=== PATIENT | female | born 1960 | race Caucasian/White ===

== ENCOUNTER 2017-09-05 21:01 | Emergency (ER) | payer MEDICARE ==
[2014-11-28 18:19] VITALS: BMI 36.1
[~2017-09-05 21:01] MED LIST: ADVAIR 250/501 DISK INH; BENTYL10 MG PO; BUSPAR 15 MG TA15 MG PO; CLARITIN 10 MG10 MG PO; CYCLOBENZAPRINE10 MG PO; LISINOPRIL5 MG PO; PLAVIX75 MG PO; PRAVACHOL20 MG PO; PROAIR HFA8.5 GM INH; ZANTAC150 MG PO
[2017-09-05 22:14] LABS: BASOPHILS 0.3 % (0-2); EOSINOPHILS 1.6 % (0-7); HEMATOCRIT 37.3 % (36.0-48.0); HEMOGLOBIN 12.1 g/dL (12-16); LYMPHOCYTES 21.8 % (15-50); MCHC 32.4 g/dL (31.0-37.0); MCV 92.3 fL (80.0-100.0); MEAN PLATELET VOLUME 9.4 fL (7.4-10.4); MONOCYTES 6.9 % (2-11); NEUTROPHILS 65.4 % (40-80); RBC 4.04 10x6/uL (4.00-5.40); RDW 13.4 % (11.5-14.5); WBC 7.6 10x3/uL (4.8-10.8)
[2017-09-05 22:18] LABS: PLATELET COUNT 267 10x3/uL (130-400)
[2017-09-05 22:45] LABS: ALBUMIN 2.9 g/dL (3.4-5.0); ANION GAP 15.2 mmol/L (8-16); BILIRUBIN - TOTAL 0.21 mg/dL (0.2-1.3); CALCIUM 8.7 mg/dL (8.5-10.1); CARBON DIOXIDE 24.1 mmol/L (21.0-32.0); CREATININE - SERUM 1.3 mg/dL (0.6-1.3); POTASSIUM - SERUM 3.3 mmol/L (3.5-5.1); PROTEIN - SERUM 7.1 g/dL (6.4-8.2)
== END 2017-09-06 01:54 | disposition home or self-care (01) ==
LOC: D.ER 21:01
PROVIDERS: Family Medicine
DX: R19.7 Diarrhea, unspecified (principal); J44.9 Chronic obstructive pulmonary disease, unspecified; I10 Essential (primary) hypertension